=== PATIENT | female | born 2000 | race Caucasian/White ===

== ENCOUNTER 2020-02-17 16:05 | Outpatient (RCR) | payer OTHER | END 2020-02-24 | disposition home or self-care (01) | LOC: WCC 16:05 | DX: T86.828 Other complications of skin graft (allograft) (autograft) (principal); Z96.21 Cochlear implant status | CPT/HCPCS: G0277; G0463; 99204 ==

== ENCOUNTER 2020-02-17 18:14 | Outpatient (RCR) | payer SELFPAY | END 2020-02-24 | disposition home or self-care (01) | LOC: WCC 18:14 | DX: T86.828 Other complications of skin graft (allograft) (autograft) (principal); Z96.21 Cochlear implant status ==

== ENCOUNTER 2020-02-25 10:54 | Outpatient (RCR) | payer OTHER | END 2020-03-25 | disposition home or self-care (01) | LOC: WCC 10:54 | DX: T86.828 Other complications of skin graft (allograft) (autograft) (principal); H91.90 Unspecified hearing loss, unspecified ear | CPT/HCPCS: G0277 ×3 ==